=== PATIENT | male | born 1950 | race Caucasian/White ===

== ENCOUNTER 2016-10-21 10:10 | Emergency (ER) | payer MEDICARE, OTHER ==
[~2016-10-21] VITALS: Ht 167.6 cm; Wt 97.2 kg
[2016-10-21 10:06] VITALS: BP 126/88
[2016-10-21] MEDS ORDERED: TETANUS, DIPTHERIA, PERTUSSIS (ADACELL) VACCINE 0.5 ML VIAL IM ONE (10:25)
[2016-10-21] MEDS ORDERED: ACETAMINOPHEN 500 MG TAB (TYLENOL) PO ONE (10:30)
== END 2016-10-21 11:41 | disposition home or self-care (01) ==
LOC: EDUNIT# 10:10 → ED 10:12
DX: S01.111A Laceration without foreign body of right eyelid and periocular area, initial encounter (principal); W01.198A Fall on same level from slipping, tripping and stumbling with subsequent striking against other object, initial encounter; Y93.01 Activity, walking, marching and hiking; Y92.89 Other specified places as the place of occurrence of the external cause
CPT/HCPCS: 12011; 70450; 73130; 90471; 90715; 99283; A9270; 12001

== ENCOUNTER → 2016-10-21 | Outpatient (CLI) | payer MEDICARE | LOC: EMS 09:55 | PROVIDERS: ATTEND Emergency Medicine | DX: S01.111A Laceration without foreign body of right eyelid and periocular area, initial encounter (principal); W01.0XXA Fall on same level from slipping, tripping and stumbling without subsequent striking against object, initial encounter; Y92.89 Other specified places as the place of occurrence of the external cause ==